=== PATIENT | male | born 1985 | race Hispanic/Latino ===

== ENCOUNTER 2017-12-22 13:37 | Emergency (ER) | payer SELFPAY ==
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
[2017-12-22] MEDS ORDERED: Ketorolac Tromethamine 60 MG/2 ML VIAL ONE (15:52)
[2017-12-22] MEDS ORDERED: Acetaminophen 500 MG TAB ONE (15:52)
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
== END 2017-12-22 14:10 | disposition home or self-care (01) ==
LOC: ERS 13:37
DX: S83.92XA Sprain of unspecified site of left knee, initial encounter (principal); S20.212A Contusion of left front wall of thorax, initial encounter; I10 Essential (primary) hypertension; V43.92XA Unspecified car occupant injured in collision with other type car in traffic accident, initial encounter
CPT/HCPCS: 71046; 96372; J1885